=== PATIENT | female | born 1970 | race Caucasian/White ===

== ENCOUNTER 2019-06-19 09:00 | Day surgery (SDC) | payer BC, OTHER ==
[~2019-06-19] VITALS: Ht 162.6 cm; Wt 164.2 kg
[~2019-06-19 09:00] MED LIST: AZATHIOPRINE50 MG PO; COLESTID1 GM PO; COMBIGAN EYE DR10 ML OPHTHALMIC; DORZOLAMIDE HCL10 ML OPHTHALMIC; ELIQUIS2.5 MG PO; FARXIGA10 MG PO; FUROSEMIDE 80 M80 M1 PO; LEVOTHYROXINE88 MCG PO; METFORMIN HCL1000 MG PO; OMEPRAZOLE 20 M20 M1 PO; SPIRONOLACTONE25 MG PO; TRESIBA FL100 UNIT/1 SUBQ; VICTOZA 3-0.6 MG/0.1 SUBQ; ZETIA10 MG PO
[2019-06-19 10:14] VITALS: BP 123/76
--- NOTE | 2019-06-23 06:15 | O ---
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 PROCEDURE: Enucleation of left eye with removal of Seton, implantation of 18 mm Medpor sphere with muscles attached to implant, conjunctivoplasty, temporary tarsorrhaphy. SURGEON: Gary Greenberg MD. STATE'S ATTORNEY: None. ANESTHESIA: General. COMPLICATIONS: None. 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 She presents today for removal of the left eye with reconstruction of the socket, sufficient to hopefully allow her to wear a prosthesis. Informed consent was obtained to include but not limited to the potential risk for bleeding, infection, and the need for further surgery or treatment. DESCRIPTION OF PROCEDURE: The patient was taken to the operating room where general anesthesia was administered. The left retrobulbar space was then anesthetized with Xylocaine with epinephrine mixed with Marcaine and Wydase. An additional aliquot of anesthetic was then administered anteriorly subconjunctivally. Care was taken to try to draw as much of the conjunctiva up for that later dissection because of the extreme amount of scarring that was [facility] [address] [place] [address] OPERATIVE REPORT Name: NASHTAMMY M Room #: DEP [facility] Wenceslao#: [id number] Admission: 06/19/19 Attend Phys: Gary Greenberg MD Discharge: 06/19/19 Date of : 72 Report #: [id number] present from her prior interventions trying to salvage her globe. An additional anesthetic injection was then made at the lid margins anticipating a tarsorrhaphy to be placed at the end of the procedure. After being sterilely prepped and draped, the right eye was protected with a moistened sponge. A lid speculum was placed on the left eye. A 360-degree conjunctival peritomy was made as best possible considering the tremendous amount of scarring present. Attention was first turned to the lateral rectus muscle. 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 The Seton was dissected free, 360 degrees utilizing entirely sharp dissection. No blunt dissection was possible. The Seton was removed and placed on the back table. Attention was then returned to the enucleation procedure. The lateral rectus muscle was then isolated on a muscle hook and cleaned of its surrounding connective tissue as best possible. A general ooze persisted throughout the procedure, which was not anticipated considering her pathology. A 5-0 Vicryl suture was then placed through its insertion with locking bites at each margin. The muscle was then transected from the globe and retracted out of the field with a En. The inferior medial and superior rectus muscles were similarly isolated and drawn out of the field. There was enough scarring present. The decision was made not to specifically isolate the oblique muscles as it would have delay the dissection even further and made it messier. The optic nerve was then clamped with a hemostat for 3 minutes on 3 successive sessions. The optic nerve was then clamped with a hemostat one final time. The optic nerve was then cut with a scissor and a monopolar cutting current was used to separate the oblique muscles where they attached to the globe and the remaining small places where Tenon's was still attached. Gentle oozing ensued, which was controlled with monopolar cautery. A 20 mm sizing sphere was then placed behind posterior tenons. It appeared large for the space at hand. An 18 mm Medpor sphere was then vacuum aspirated and irrigation solution with an antibiotic and subsequently reposited behind posterior tenons with an easy glide introducer. Posterior tenons were then closed over the Medpor sphere with interrupted 5-0 Vicryl sutures. The medial and lateral rectus muscle were then drawn and attached to each other with interrupted 5-0 Vicryl sutures. The superior and inferior rectus muscles were then attached to the medial and lateral rectus muscles with interrupted 5-0 Vicryl sutures. Tenons were then closed with best possible over the muscles with interrupted 5-0 Vicryl sutures. The conjunctiva was then approached inferomedially and superonasally to allow some tissue to be rotated more laterally to make up for the deficiency and conjunctivae. Hemostasis was then re-achieved. The conjunctival flap was then advanced and secured with a running 6-0 Vicryl suture with buried knots. A [facility] [address] [place] [address] OPERATIVE REPORT Name: TAMMY NASH [id number] Admission: 06/19/19 Attend Phys: Gary Greenberg MD Discharge: 06/19/19 Date of : 72 Report #: [id number] medium size conformer was then placed in the socket followed by bacitracin ophthalmic ointment. A temporary tarsorrhaphy was then fashioned from a short section of IV tubing and a double arm 5-0 nylon suture passed. A Telfa pad was then placed on the eye followed by 2 eye patches are held in place with silk tape and Mastisol. The patient was then transported to the recovery area having tolerated the procedures well with no anesthetic or operative complications being noted. <ELECTRONICALLY SIGNED> By: Gary Greenberg MD 06/23/19 0615 [id number] Gray Greenberg MD /nt
== END 2019-06-19 13:35 | disposition home or self-care (01) ==
LOC: OR 09:00 → TBA 09:00 → OR 09:38
DX: H57.12 Ocular pain, left eye (principal); H54.40 Blindness, one eye, unspecified eye; H11.242 Scarring of conjunctiva, left eye; H40.52X0 Glaucoma secondary to other eye disorders, left eye, stage unspecified; I50.9 Heart failure, unspecified; E11.9 Type 2 diabetes mellitus without complications; G47.30 Sleep apnea, unspecified; K21.9 Gastro-esophageal reflux disease without esophagitis; Z98.890 Other specified postprocedural states; Z79.899 Other long term (current) drug therapy; Z79.4 Long term (current) use of insulin; Z88.0 Allergy status to penicillin; Z88.8 Allergy status to other drugs, medicaments and biological substances; Z79.01 Long term (current) use of anticoagulants
CPT/HCPCS: 50010; 50101; 50386; 50398; 51636; 51854; 53500; 56527; 56528; 56531; 62110; 62900; 64037; 70005